=== PATIENT | female | born 1950 | race Caucasian/White ===

== ENCOUNTER 2022-01-27 07:33 | Day surgery (SDC) | payer MEDICARE, MEDICAID ==
[~2022-01-27] VITALS: Ht 152.4 cm; Wt 68.2 kg
[~2022-01-27 07:33] MED LIST: KETOROLAC TROMETHAMINE 0.5% 5 ML OPHTHALMIC SOLUTION ONE; MOXIFLOXACIN HCL 0.5% 3 ML OPHTHALMIC SOLUTION ONE; RINGERS SOLUTION,LACTATED 500 ML IV ONE; TROPICAMIDE 1% 2 ML OPHTHALMIC SOLUTION ONE
[2022-01-27] MEDS ORDERED: FentaNYL CITRATE PF 100 MCG/2 ML VIAL IVP ONE (07:34)
[2022-01-27] MEDS ORDERED: TETRACAINE HCL/PF 0.5% 4 ML OPHTHALMIC SOLUTION OU ONE (07:34)
[2022-01-27] MEDS ORDERED: MIDAZOLAM HCL 2 MG/2 ML VIAL IVP ONE (07:34)
[2022-01-27] MEDS ORDERED: POVIDONE-IODINE 10% 15 ML SOLUTION UD TP ONE (07:34)
[2022-01-27] MEDS ORDERED: EPINEPHrine 1:1,000 [1 MG/ML] VIAL IM ONE (07:34)
[2022-01-27] MEDS ORDERED: LIDOCAINE/PF 1% 2 ML VIAL IM ONE (07:34)
[2022-01-27] MEDS ORDERED: BALANCED SALT 15 ML OPHTHALMIC IRRIG.SOLN OU ONE (07:34)
[2022-01-27] MEDS ORDERED: HYALURONATE SOD 8.5MG/0.85ML 10 MG/ML SYRINGE IO ONE (07:34)
[2022-01-27 08:04] LABS: COVID AG,FIA SOURCE NASAL SWAB
[2022-01-27] MEDS ORDERED: RINGERS SOLUTION,LACTATED 500 ML IV ONE (08:30)
[2022-01-27] MEDS: TROPICAMIDE 1% 2 ML OPHTHALMIC SOLUTION OS SCH ×3 (08:31→08:45)
[2022-01-27] MEDS: KETOROLAC TROMETHAMINE 0.5% 5 ML OPHTHALMIC SOLUTION OS SCH ×3 (08:31→08:45)
[2022-01-27] MEDS: PHENYLEPHRINE HCL 2.5% 2 ML OPHTHALMIC SOLUTION OS SCH ×3 (08:31→08:45)
[2022-01-27] MEDS: MOXIFLOXACIN HCL 0.5% 3 ML OPHTHALMIC SOLUTION OS SCH ×3 (08:32→08:46)
[2022-01-27] MEDS ORDERED: CHOL25TA4 PO (11:41)
[2022-01-27] MEDS ORDERED: GABA-1201 PO (11:41)
[2022-01-27] MEDS ORDERED: CYCL-448 PO (11:41)
[2022-01-27] MEDS ORDERED: ONDA-104 PO (11:41)
[2022-01-27] MEDS ORDERED: ACET325S20 PR (11:41)
[2022-01-27] MEDS ORDERED: PANT-31 PO (11:41)
[2022-01-27] MEDS ORDERED: LACT10SO10 PO (11:41)
[2022-01-27] MEDS ORDERED: APIX5TAB PO (11:41)
[2022-01-27] MEDS ORDERED: ACET-2247 PO (11:41)
== END 2022-01-27 12:40 ==
LOC: SURGERY 07:33
PROVIDERS: ATTEND Ophthalmology
DX: H25.22 Age-related cataract, morgagnian type, left eye (principal); Z79.899 Other long term (current) drug therapy; Z98.890 Other specified postprocedural states
CPT/HCPCS: 66982; 87426; 93005; C9803; J0171; J2250; J3010; J3490; J7120; V2632